=== PATIENT | male | born 1955 | race Caucasian/White ===

== ENCOUNTER 2019-09-24 02:15 | Inpatient (IN) | payer OTHER ==
[2019-09-24] VITALS (7 sets, daily range): BP systolic 111–176; BP diastolic 56–85
[~2019-09-24] VITALS: Ht 172.7 cm; Wt 76.4 kg
[~2019-09-24 02:15] MED LIST: ACETAMINOPHEN-1 EAC1 PO; ALLEGRA ALLERG180 MG PO; ASPIRIN EC325 MG PO; ASPIRIN81 M2 PO; ATROVENT30 ML NASAL; AUGMENTIN 875875 M1 PO; FENOFIBRATE160 MG PO; FOLIC ACID1 MG PO; LISINOPRIL10 MG PO; LOPRESSOR25 PO; MULTI VITAMIN1 EACH PO; OMEPRAZOLE20 M2 PO; PROTONIX40 M2 PO; ROBAXIN500 MG PO; SIMVASTATIN40 MG PO; VITAMIN B-1100 M1 PO; XALATAN2.5 ML OPHTHALMIC
[2019-09-24 02:38] LABS: ABSOLUTE BASOPHILS 0.1 thou/uL (0.0-0.2); ABSOLUTE EOSINOPHILS 0.1 thou/uL (0.0-0.7); ABSOLUTE LYMPHOCYTES 1.6 thou/uL (0.8-5.3); ABSOLUTE MONOCYTES 0.4 thou/uL (0.0-1.2); ABSOLUTE NEUTROPHILS 4.6 thou/uL (1.6-8.1); BASOPHILS 1.2 %; HEMATOCRIT 42.9 % (42.0-52.0); HEMOGLOBIN 14.7 gm/dL (14.0-18.0); LYMPHOCYTES 23.9 %; MCH 31.9 pg (26.0-34.0); MCHC 34.1 g/dL (28.0-37.0); MCV 93.4 fL (80.0-100.0); MONOCYTES 6.4 %; MPV 8.9 fl. (7.2-11.1); NUCLEATED RBCS 0 /100WBC; PLATELET COUNT* 195 thou/uL (150-400); POLYS 67.5 %; WBC 6.9 thou/uL (4.0-11.0)
[2019-09-24 02:50] LABS: CALCIUM 8.1 mg/dL (8.5-10.1); CREATININE 1.7 mg/dL (0.6-1.3); POTASSIUM 3.4 mmol/L (3.5-5.1)
[2019-09-24 02:54] LABS: ALBUMIN 3.6 g/dL (3.4-5.0); MAGNESIUM 1.7 mg/dL (1.8-2.4); TOTAL BILIRUBIN 0.8 mg/dL (<0.1-1.0); TOTAL PROTEIN 7.2 g/dL (6.4-8.2)
--- NOTE | 2019-09-24 05:00 | NUR ---
RECEIVED REPORT FROM ER, TO ROOM PER CART. GAIT STEADY. PT SOMULENT DUE TO DEPRESSION WITH VERY RECENT 'S . NO DIARRHEA AT PRESENT BUT HYPERACTIVE BOWEL SOUNDS. SEE ADMISSION HX AND ASSESSMENT.
[2019-09-24 05:23] LABS: URINE BILIRUBIN NEGATIVE (Negative); URINE BLOOD NEGATIVE (Negative); URINE CLARITY CLEAR; URINE COLOR YELLOW; URINE GLUCOSE-RANDOM NEGATIVE (Negative); URINE KETONES NEGATIVE (Negative); URINE LEUKOCYTES-REFLEX NEGATIVE (Negative); URINE NITRITE-REFLEX NEGATIVE (Negative); URINE PROTEIN NEGATIVE (Negative); URINE SPECIFIC GRAVITY 1.015 (1.005-1.030); URINE UROBILINOGEN 0.2 E.U./dl (0.2-1.0)
[2019-09-24] MEDS ORDERED: XANAX 0.5 MG0.5 M1 PO (06:34)
[2019-09-24] MEDS ORDERED: DICYCLOMINE HCL20 MG PO (06:35)
[2019-09-24] MEDS ORDERED: TIMOLOL MALEATE5 M2 RT. EYE (06:36)
[2019-09-24] MEDS ORDERED: FLONASE 0.05%50 MCG NASAL (06:38)
[2019-09-24] MEDS ORDERED: AZELASTINE205.5 MCG/ NARES (06:39)
[2019-09-24] MEDS ORDERED: LEXAPRO5 MG PO (06:40)
--- NOTE | 2019-09-24 16:59 | NUR ---
PATIENT UP AND AMBULATING WITHOUT DIFFICULTY. IVF REMAINS INFUSING. NO COMPLAINTS OF PAIN. PATIENT TOLERATED CLEAR LIQUID DIET, STARTED ON REGULAR DIET THIS AFTERNOON. TOLERATING WITHOUT DIFFICULTY. MG REPLACED PER PROTOCOL.
[2019-09-24 18:27] LABS: CALCIUM 8.4 mg/dL (8.5-10.1); CREATININE 1.2 mg/dL (0.6-1.3); POTASSIUM 4.3 mmol/L (3.5-5.1)
[2019-09-25 05:05] LABS: HEMATOCRIT 34.8 % (42.0-52.0); MCHC 34.2 g/dL (28.0-37.0); MCV 93.5 fL (80.0-100.0); MPV 9.1 fl. (7.2-11.1); RBC 3.73 mil/uL (4.50-6.00); RDW-CV 14.8 % (10.5-14.5); WBC 3.8 thou/uL (4.0-11.0)
[2019-09-25 05:23] LABS: HEMOGLOBIN 11.9 gm/dL (14.0-18.0)
[2019-09-25 05:25] LABS: CALCIUM 7.7 mg/dL (8.5-10.1); MAGNESIUM 1.5 mg/dL (1.8-2.4); POTASSIUM 3.7 mmol/L (3.5-5.1); TOTAL BILIRUBIN 1.2 mg/dL (<0.1-1.0); TOTAL PROTEIN 6.1 g/dL (6.4-8.2)
--- NOTE | 2019-09-25 07:41 | NUR ---
PT IS ABLE TO COMMUNICATE HIS NEEDS TO STAFF EFFECTIVELY. HE HAS DENIED THE NEED FOR PAIN MEDICATION UP TO THIS TIME. POSSIBLE DISCHARGE LATER TODAY OR TOMORROW.
[2019-09-25 07:45] VITALS: BP 147/74
[2019-09-25 11:57] VITALS: BP 147/74
--- NOTE | 2019-09-25 13:05 | NUR ---
RECEIVED REPORT FROM CITLALY SANDERS. ASSUMED CARE OF PT AROUND 0730. PT A&O X4. AM ASSESSMENT AND VITALS COMPLETED CHARTED. PT M/S STATUS. MEDS PER EMAR. PT TOLERATING DIET. IV FLUIDS INFUSING. PT DENIED PAIN OR DISCOMFORT THIS AM. DIARRHEA HAS STOPPED. PT SEEN BY DR BURTON - DISCHARGE ORDERS RECEIVED. DISCHARGE COMPLETED DOCUMENTED. DISCHARGE SUMMARY GONE OVER WITH PT, PT COMMUNICATES UNDERSTANDING. NO NEW MEDICATIONS. ALL BELONGINGS GATHERED AND SENT OUT WITH PT. PT LEFT UNIT IN WC WITH NURSING STAFF. PT LEFT HOSPITAL IN CAR WITH EXTENDED FAMILY.
[2019-09-26 02:07] LABS: GLYCOHEMOGLOBIN (HGB A1C) 5.3 % (4.8-5.6)
== END 2019-09-25 13:03 | disposition home or self-care (01) | DRG 684 ==
LOC: M.ERS 02:15 → M.TBA-ER 03:40 → M.2W 04:30
PROVIDERS: Emergency Medicine; Internal Medicine; ADMIT Internal Medicine
DX: N17.0 Acute kidney failure with tubular necrosis (principal); R19.7 Diarrhea, unspecified; E78.00 Pure hypercholesterolemia, unspecified; F41.9 Anxiety disorder, unspecified; E86.0 Dehydration; F32.9 Major depressive disorder, single episode, unspecified; E83.42 Hypomagnesemia; F10.10 Alcohol abuse, uncomplicated; Y90.7 Blood alcohol level of 200-239 mg/100 ml; E87.6 Hypokalemia; I10 Essential (primary) hypertension; Z79.899 Other long term (current) drug therapy; Z79.82 Long term (current) use of aspirin; Z91.048 Other nonmedicinal substance allergy status; Z87.891 Personal history of nicotine dependence

== ENCOUNTER 2020-09-21 16:45 | Inpatient (IN) | payer OTHER ==
[~2020-09-21] VITALS: Ht 167.6 cm; Wt 59.2 kg
[~2020-09-21 16:45] MED LIST changes: +AZELASTINE205.5 MCG/ NARES; +DICYCLOMINE HCL20 MG PO; +FLONASE 0.05%50 MCG NASAL; +LEXAPRO5 MG PO; +TIMOLOL MALEATE5 M2 RT. EYE; +XANAX 0.5 MG0.5 M1 PO
[2020-09-21] MEDS ORDERED: CEPHALEXIN500 MG PO (18:45)
[2020-09-21 19:22] LABS: ABSOLUTE BASOPHILS 0.1 thou/uL (0.0-0.2); ABSOLUTE EOSINOPHILS 0.1 thou/uL (0.0-0.7); ABSOLUTE LYMPHOCYTES 1.3 thou/uL (0.8-5.3); ABSOLUTE MONOCYTES 0.5 thou/uL (0.0-1.2); ABSOLUTE NEUTROPHILS 2.7 thou/uL (1.6-8.1); BASOPHILS 1.5 %; EOSINOPHILS 1.9 %; HEMATOCRIT 38.5 % (42.0-52.0); HEMOGLOBIN 12.8 gm/dL (14.0-18.0); LYMPHOCYTES 27.9 %; MCH 33.4 pg (26.0-34.0); MCHC 33.3 g/dL (28.0-37.0); MCV 100.4 fL (80.0-100.0); MONOCYTES 11.5 %; MPV 7.7 fl. (7.2-11.1); NUCLEATED RBCS 0 /100WBC; PLATELET COUNT* 251 thou/uL (150-400); POLYS 57.2 %; RBC 3.84 mil/uL (4.50-6.00); RDW-CV 16.1 % (10.5-14.5); WBC 4.8 thou/uL (4.0-11.0)
[2020-09-21 19:29] LABS: CALCIUM 9.5 mg/dL (8.5-10.1)
[2020-09-21 19:31] LABS: POTASSIUM 2.6 mmol/L (3.5-5.1)
[2020-09-21 19:42] LABS: ALBUMIN 3.4 g/dL (3.4-5.0); TOTAL BILIRUBIN 1.1 mg/dL (<0.1-1.0); TOTAL PROTEIN 7.8 g/dL (6.4-8.2)
[2020-09-21 21:39] VITALS: BP 130/88
[2020-09-21 22:00] VITALS: BP 147/73
[2020-09-22] VITALS (7 sets, daily range): BP systolic 126–150; BP diastolic 67–86
[2020-09-22 09:11] LABS: ABSOLUTE LYMPHOCYTES 0.9 thou/uL (0.8-5.3); ABSOLUTE MONOCYTES 0.5 thou/uL (0.0-1.2); BASOPHILS 1.2 %; EOSINOPHILS 1.3 %; HEMATOCRIT 30.7 % (42.0-52.0); MCH 33.7 pg (26.0-34.0); MCHC 33.9 g/dL (28.0-37.0); MCV 99.2 fL (80.0-100.0); MONOCYTES 15.7 %; MPV 7.8 fl. (7.2-11.1); NUCLEATED RBCS 0 /100WBC; PLATELET COUNT* 177 thou/uL (150-400); POLYS 56.8 %; RBC 3.09 mil/uL (4.50-6.00); WBC 3.5 thou/uL (4.0-11.0)
[2020-09-22 09:12] LABS: HEMOGLOBIN 10.4 gm/dL (14.0-18.0)
[2020-09-22 09:24] LABS: CALCIUM 8.8 mg/dL (8.5-10.1); CREATININE 0.8 mg/dL (0.6-1.3)
[2020-09-22 09:27] LABS: POTASSIUM 2.5 mmol/L (3.5-5.1)
[2020-09-23 04:53] LABS: ABSOLUTE BASOPHILS 0.1 thou/uL (0.0-0.2); ABSOLUTE EOSINOPHILS 0.1 thou/uL (0.0-0.7); ABSOLUTE LYMPHOCYTES 1.2 thou/uL (0.8-5.3); ABSOLUTE MONOCYTES 0.5 thou/uL (0.0-1.2); ABSOLUTE NEUTROPHILS 1.9 thou/uL (1.6-8.1); EOSINOPHILS 1.9 %; HEMATOCRIT 27.9 % (42.0-52.0); HEMOGLOBIN 9.4 gm/dL (14.0-18.0); LYMPHOCYTES 32.1 %; MCH 33.9 pg (26.0-34.0); MCHC 33.7 g/dL (28.0-37.0); MCV 100.9 fL (80.0-100.0); MONOCYTES 13.5 %; MPV 8.5 fl. (7.2-11.1); NUCLEATED RBCS 0 /100WBC; PLATELET COUNT* 176 thou/uL (150-400); POLYS 50.5 %; RBC 2.77 mil/uL (4.50-6.00); RDW-CV 16.3 % (10.5-14.5); WBC 3.8 thou/uL (4.0-11.0)
[2020-09-23 05:08] VITALS: BP 130/70
[2020-09-23 05:52] LABS: CALCIUM 8.4 mg/dL (8.5-10.1); CREATININE 0.8 mg/dL (0.6-1.3); POTASSIUM 3.7 mmol/L (3.5-5.1)
[2020-09-23 08:00] VITALS: BP 134/77
[2020-09-23 12:27] VITALS: BP 142/81
[2020-09-23 17:04] VITALS: BP 148/81
[2020-09-23 20:00] VITALS: BP 139/86
[2020-09-24 00:49] VITALS: BP 152/75
[2020-09-24 04:15] VITALS: BP 143/79
[2020-09-24 04:57] LABS: ABSOLUTE BASOPHILS 0.1 thou/uL (0.0-0.2); ABSOLUTE EOSINOPHILS 0.1 thou/uL (0.0-0.7); ABSOLUTE LYMPHOCYTES 0.8 thou/uL (0.8-5.3); ABSOLUTE MONOCYTES 0.3 thou/uL (0.0-1.2); ABSOLUTE NEUTROPHILS 1.8 thou/uL (1.6-8.1); BASOPHILS 2.3 %; EOSINOPHILS 2.8 %; HEMATOCRIT 29.1 % (42.0-52.0); LYMPHOCYTES 27.1 %; MCH 34.5 pg (26.0-34.0); MCHC 34.4 g/dL (28.0-37.0); MCV 100.3 fL (80.0-100.0); MONOCYTES 9.9 %; MPV 7.7 fl. (7.2-11.1); NUCLEATED RBCS 0 /100WBC; PLATELET COUNT* 173 thou/uL (150-400); POLYS 57.9 %; RDW-CV 16.3 % (10.5-14.5); WBC 3.1 thou/uL (4.0-11.0)
[2020-09-24 05:11] LABS: CALCIUM 8.4 mg/dL (8.5-10.1); CREATININE 0.7 mg/dL (0.6-1.3); POTASSIUM 3.2 mmol/L (3.5-5.1)
[2020-09-24 08:00] VITALS: BP 135/82
--- NOTE | 2020-09-24 10:47 | EKG ---
[place] [address] ELECTROCARDIOGRAM REPORT Name: PA GARCIA Room: [address] ADM IN .R.#: [id number] Admission: 09/22/20 Attend Phys: Kirstin Mendoza, Discharge: Date of : 55 Date of Service: 09/21/20 1739 Report #: [id number] THIS REPORT FOR: //name// [facility] ED Test Date: 2020-09-21 Test Time: 17:39:40 Pat Name: PA GARCIA Department: Room: [facility] Gender: M Sizing Sponger: TDS : 1955 Requested By: Colby Phillips Order Number: [id number] MD: Kris Bolaños Measurements Intervals Gaffney Rate: 72 P: 81 DE: 148 QRS: 40 QRSD: 95 T: 36 QT: 440 QTc: 482 Interpretive Statements Sinus rhythm Borderline T abnormalities, anterior leads Borderline prolonged QT interval Compared to ECG 07/15/2014 01:41:45 Sinus tachycardia no longer present Electronically Signed On 09-24-2020 10:46:57 CDT by Kris Bolaños [email or web address] <ELECTRONICALLY SIGNED> By: Kris Bolaños MD, [facility] 09/24/20 1046 1739 1739 Kris Bolaños MD, [facility] /EPI
[2020-09-24 11:55] VITALS: BP 158/91
[2020-09-24 16:37] VITALS: BP 140/73
[2020-09-24 20:00] VITALS: BP 147/87
[2020-09-25 00:02] VITALS: BP 152/67
[2020-09-25 04:00] VITALS: BP 148/73
[2020-09-25 08:00] VITALS: BP 145/84
[2020-09-25 11:54] VITALS: BP 137/76
[2020-09-25 14:15] VITALS: BP 137/76
[2020-09-25 14:17] VITALS: BP 137/76
== END 2020-09-25 15:05 | disposition home health service (06) | DRG 432 ==
LOC: M.ERS 16:45 → M.TBA-ER 20:39 → M.ERS 21:39 → M.2W 21:39
PROVIDERS: Emergency Medicine Emergency Medical Services; Internal Medicine; ADMIT Internal Medicine; ATTEND Internal Medicine
DX: K70.10 Alcoholic hepatitis without ascites (principal); G92 Toxic encephalopathy; F10.231 Alcohol dependence with withdrawal delirium; E86.0 Dehydration; E87.6 Hypokalemia; E83.42 Hypomagnesemia; D75.9 Disease of blood and blood-forming organs, unspecified; Y90.9 Presence of alcohol in blood, level not specified; E78.00 Pure hypercholesterolemia, unspecified; F41.9 Anxiety disorder, unspecified; I10 Essential (primary) hypertension; F10.229 Alcohol dependence with intoxication, unspecified; Z20.822 Contact with and (suspected) exposure to COVID-19; Z87.891 Personal history of nicotine dependence; Z79.82 Long term (current) use of aspirin; Z79.899 Other long term (current) drug therapy; Z91.09 Other allergy status, other than to drugs and biological substances